=== PATIENT | male | born 1965 | race Caucasian/White ===

== ENCOUNTER → 2018-10-05 | Outpatient (CLI) | payer OTHER ==
[2018-10-05 19:17] LABS: U Amphetamine Screen Not Detected; U Barbituate Screen Not Detected; U Benzodiazapine Screen Not Detected; U Buprenorphine Screen Not Detected; U Cannabinoids Screen Not Detected; U Cocaine Screen Not Detected; U Methadone Screen Not Detected; U Methamphetamine Screen Not Detected; U Opiates Screen Not Detected; U Oxycodone Screen Not Detected; U Phencyclidine Screen Not Detected; U Propoxyphene Screen Not Detected
== END ==
LOC: LAB 15:17 → LAB SHORT 15:17
PROVIDERS: Nurse Practitioner Family
DX: G89.29 Other chronic pain (principal); Z79.891 Long term (current) use of opiate analgesic

== ENCOUNTER 2018-12-25 09:47 | Day surgery (SDC) | payer OTHER ==
[~2018-12-25] VITALS: Ht 175.3 cm; Wt 95.8 kg
[~2018-12-25 09:47] MED LIST: A THRU Z SELEC1 EAC5 PO; ALBU90OI INH; BUDE6HFA INH; CINNAMON BARK1 GM PO; GABA300 PO; Milk Thistle150 MG PO; Nicoderm Cq1 EAC1 TOP; Norco 10-325 T1 EACH PO; OXYC10TA19 PO; PREG50 PO; SIMV40 PO; TRAM50 PO
== END 2018-12-25 11:59 | disposition home or self-care (01) ==
LOC: ORSCSDS 09:47
PROVIDERS: Orthopaedic Surgery
PROC: 01N50ZZ Release Median Nerve, Open Approach (ICD-10-PCS; principal; 2018-12-25 11:55)
DX: G56.02 Carpal tunnel syndrome, left upper limb (principal); Z87.891 Personal history of nicotine dependence; E66.9 Obesity, unspecified; Z68.31 Body mass index [BMI] 31.0-31.9, adult; Z79.899 Other long term (current) drug therapy
CPT/HCPCS: J0690; J2250; J2405; J3010; J7120

== ENCOUNTER → 2019-04-10 | Outpatient (CLI) | payer OTHER ==
[~2019-04-10] MED LIST changes: +CYAN500 PO; +DHEA PO; +Depo-Testos200 MG/ML IM; +METAMUCIL660 GM; +Norco 5-325 Ta1 EACH PO; +PROBIOTIC1 EAC1 PO; +Pregnenolone Po25 GM; +Robaxin-750750 MG PO; +TRAZ50 PO; +Vitamin D400 UNI2 PO
[2019-04-11 14:20] LABS: Stool Occult Bld Immuno 1 Positive (NEGATIVE)
== END | disposition home or self-care (01) ==
LOC: LAB EV 14:45
PROVIDERS: Physician Assistant
DX: K52.9 Noninfective gastroenteritis and colitis, unspecified (principal)
CPT/HCPCS: 82274; 87493

== ENCOUNTER 2019-04-12 14:29 | Emergency (ER) | payer OTHER ==
[~2019-04-12] VITALS: Ht 152.4 cm; Wt 104.3 kg
[~2019-04-12 14:29] MED LIST changes: -CYAN500 PO; -DHEA PO; -Depo-Testos200 MG/ML IM; -METAMUCIL660 GM; -Norco 5-325 Ta1 EACH PO; -PROBIOTIC1 EAC1 PO; -Pregnenolone Po25 GM; -Robaxin-750750 MG PO; -TRAZ50 PO; -Vitamin D400 UNI2 PO
[2019-04-12] MEDS ORDERED: Depo-Testos200 MG/ML IM (14:51)
[2019-04-12] MEDS ORDERED: Pregnenolone Po25 GM (14:52)
[2019-04-12] MEDS ORDERED: TRAZ50 PO (14:53)
[2019-04-12] MEDS ORDERED: PROBIOTIC1 EAC1 PO (14:53)
[2019-04-12] MEDS ORDERED: Vitamin D400 UNI2 PO (14:54)
[2019-04-12] MEDS ORDERED: CYAN500 PO (14:55)
[2019-04-12] MEDS ORDERED: DHEA PO (14:55)
[2019-04-12] MEDS ORDERED: METAMUCIL660 GM (14:56)
[2019-04-12] MEDS ORDERED: Robaxin-750750 MG PO (16:31)
[2019-04-12] MEDS ORDERED: Norco 5-325 Ta1 EACH PO (16:31)
== END 2019-04-12 16:37 | disposition home or self-care (01) ==
LOC: ER 14:29
DX: M54.12 Radiculopathy, cervical region (principal); Z91.013 Allergy to seafood; Z79.899 Other long term (current) drug therapy; E78.5 Hyperlipidemia, unspecified; Z87.891 Personal history of nicotine dependence
CPT/HCPCS: 96372; 99283-25; J1170; J1885

== ENCOUNTER 2019-04-16 15:38 | Emergency (ER) | payer OTHER ==
[~2019-04-16] VITALS: Ht 172.7 cm; Wt 104.3 kg
[~2019-04-16 15:38] MED LIST changes: +CYAN500 PO; +DHEA PO; +Depo-Testos200 MG/ML IM; +METAMUCIL660 GM; +Norco 5-325 Ta1 EACH PO; +PROBIOTIC1 EAC1 PO; +Pregnenolone Po25 GM; +Robaxin-750750 MG PO; +TRAZ50 PO; +Vitamin D400 UNI2 PO
[2019-04-16] MEDS ORDERED: Norco 5-325 Ta1 EACH PO (16:32)
[2019-04-16] MEDS ORDERED: Robaxin-750750 MG PO (16:32)
== END 2019-04-16 16:36 | disposition home or self-care (01) ==
LOC: ER 15:38
DX: M54.2 Cervicalgia (principal); E78.5 Hyperlipidemia, unspecified; Z91.013 Allergy to seafood; Z79.899 Other long term (current) drug therapy; Z87.891 Personal history of nicotine dependence
CPT/HCPCS: 99281

== ENCOUNTER 2019-05-25 13:12 | Emergency (ER) | payer OTHER ==
[~2019-05-25] VITALS: Ht 172.7 cm; Wt 104.3 kg
[2019-05-25] MEDS ORDERED: Norco 10-325 T1 EACH PO (13:50)
[2019-06-01] MEDS ORDERED: Baclofen10 MG PO (13:26)
[2019-06-01] MEDS ORDERED: PRED10 PO (13:26)
[2019-06-15] MEDS ORDERED: Baclofen10 MG PO ×2 (12:17→12:34)
[2019-06-15] MEDS ORDERED: Percocet 7.5-31 EACH PO (12:34)
== END 2019-05-25 14:08 | disposition home or self-care (01) ==
LOC: ER 13:12
DX: M50.10 Cervical disc disorder with radiculopathy, unspecified cervical region (principal); M48.02 Spinal stenosis, cervical region; M25.78 Osteophyte, vertebrae; E78.5 Hyperlipidemia, unspecified; Z87.891 Personal history of nicotine dependence; Z91.018 Allergy to other foods; Z79.899 Other long term (current) drug therapy
CPT/HCPCS: 99283

== ENCOUNTER 2019-06-04 11:42 | Emergency (ER) | payer OTHER ==
[~2019-06-04] VITALS: Ht 172.7 cm; Wt 102.1 kg
[~2019-06-04 11:42] MED LIST changes: +Baclofen10 MG PO; +PRED10 PO
[2019-06-04] MEDS ORDERED: Percocet 7.5-31 EACH PO (14:04)
[2019-06-04] MEDS ORDERED: LIDO700A20 TOP (14:04)
[2019-06-15] MEDS ORDERED: Baclofen10 MG PO ×2 (12:17→12:34)
[2019-06-15] MEDS ORDERED: Percocet 7.5-31 EACH PO (12:34)
== END 2019-06-04 14:32 | disposition home or self-care (01) ==
LOC: ER 11:42
DX: G89.29 Other chronic pain (principal); M54.2 Cervicalgia; Z91.013 Allergy to seafood; Z79.899 Other long term (current) drug therapy; Z79.52 Long term (current) use of systemic steroids; Z87.891 Personal history of nicotine dependence
CPT/HCPCS: 99283

== ENCOUNTER 2019-06-09 13:28 | Emergency (ER) | payer OTHER ==
[~2019-06-09] VITALS: Ht 172.7 cm; Wt 102.1 kg
[~2019-06-09 13:28] MED LIST changes: +LIDO700A20 TOP; +Percocet 7.5-31 EACH PO
[2019-06-09] MEDS ORDERED: Percocet 7.5-31 EACH PO (13:47)
[2019-06-09] MEDS ORDERED: Baclofen10 MG PO (13:47)
[2019-06-15] MEDS ORDERED: Baclofen10 MG PO ×2 (12:17→12:34)
[2019-06-15] MEDS ORDERED: Percocet 7.5-31 EACH PO (12:34)
== END 2019-06-09 13:51 | disposition home or self-care (01) ==
LOC: ER 13:28
DX: M54.2 Cervicalgia (principal); Z76.0 Encounter for issue of repeat prescription; Z91.013 Allergy to seafood; Z79.899 Other long term (current) drug therapy; Z87.891 Personal history of nicotine dependence
CPT/HCPCS: 99282

== ENCOUNTER 2019-06-14 15:27 | Emergency (ER) | payer OTHER ==
[~2019-06-14] VITALS: Ht 172.7 cm; Wt 99.8 kg
[2019-06-15] MEDS ORDERED: Norco 10-325 T1 EACH PO (12:17)
[2019-06-15] MEDS ORDERED: Baclofen10 MG PO ×3 (12:17→12:34)
[2019-06-15] MEDS ORDERED: Percocet 7.5-31 EACH PO ×2 (12:34)
== END 2019-06-14 17:18 | disposition left against medical advice (07) ==
LOC: ER 15:27
DX: Z53.21 Procedure and treatment not carried out due to patient leaving prior to being seen by health care provider (principal); Z76.0 Encounter for issue of repeat prescription
CPT/HCPCS: 99281

== ENCOUNTER 2019-06-15 11:30 | Emergency (ER) | payer OTHER ==
[~2019-06-15] VITALS: Ht 172.7 cm; Wt 102.1 kg
[2019-06-15] MEDS ORDERED: Norco 10-325 T1 EACH PO (12:17)
[2019-06-15] MEDS ORDERED: Baclofen10 MG PO ×3 (12:17→12:34)
[2019-06-15] MEDS ORDERED: Percocet 7.5-31 EACH PO ×2 (12:34)
== END 2019-06-15 13:16 | disposition home or self-care (01) ==
LOC: ER 11:30
DX: M50.30 Other cervical disc degeneration, unspecified cervical region (principal); M48.02 Spinal stenosis, cervical region; Z91.013 Allergy to seafood; Z79.899 Other long term (current) drug therapy; Z87.891 Personal history of nicotine dependence
CPT/HCPCS: 99281

== ENCOUNTER 2019-06-20 15:39 | Emergency (ER) | payer OTHER ==
[~2019-06-20] VITALS: Ht 172.7 cm; Wt 102.1 kg
[2019-06-20] MEDS ORDERED: Baclofen10 MG PO ×2 (16:11→16:13)
[2019-06-20] MEDS ORDERED: Percocet 7.5-31 EACH PO ×2 (16:11→16:13)
== END 2019-06-20 16:20 | disposition home or self-care (01) ==
LOC: ER 15:39
DX: M54.2 Cervicalgia (principal); G89.29 Other chronic pain; Z76.0 Encounter for issue of repeat prescription; Z91.013 Allergy to seafood; Z79.899 Other long term (current) drug therapy; Z87.891 Personal history of nicotine dependence
CPT/HCPCS: 99282

== ENCOUNTER 2019-06-26 13:54 | Emergency (ER) | payer OTHER ==
[~2019-06-26] VITALS: Ht 172.7 cm; Wt 102.1 kg
[2019-06-26] MEDS ORDERED: Percocet 7.5-31 EACH PO (15:49)
[2019-06-26] MEDS ORDERED: BACL10 PO (15:49)
== END 2019-06-26 16:00 | disposition home or self-care (01) ==
LOC: ER 13:54
DX: M54.2 Cervicalgia (principal); Z76.0 Encounter for issue of repeat prescription; Z91.013 Allergy to seafood; Z79.899 Other long term (current) drug therapy; G89.29 Other chronic pain; Z87.891 Personal history of nicotine dependence
CPT/HCPCS: 99281

== ENCOUNTER 2019-07-01 13:21 | Emergency (ER) | payer OTHER ==
[~2019-07-01] VITALS: Ht 172.7 cm; Wt 102.1 kg
[~2019-07-01 13:21] MED LIST changes: +BACL10 PO
[2019-07-01] MEDS ORDERED: Baclofen10 MG PO (13:32)
[2019-07-01] MEDS ORDERED: Percocet 7.5-31 EACH PO ×2 (13:32→13:33)
== END 2019-07-01 13:38 | disposition home or self-care (01) ==
LOC: ER 13:21
DX: M54.2 Cervicalgia (principal); G89.29 Other chronic pain; Z91.013 Allergy to seafood; Z79.899 Other long term (current) drug therapy; Z87.891 Personal history of nicotine dependence
CPT/HCPCS: 99281

== ENCOUNTER 2019-07-06 12:52 | Emergency (ER) | payer OTHER ==
[~2019-07-06] VITALS: Ht 172.7 cm; Wt 102.1 kg
[2019-07-06] MEDS ORDERED: CYCL10 PO (13:07)
[2019-07-06] MEDS ORDERED: Percocet 7.5-31 EACH PO (13:07)
== END 2019-07-06 13:40 | disposition home or self-care (01) ==
LOC: ER 12:52
DX: M50.30 Other cervical disc degeneration, unspecified cervical region (principal); Z76.0 Encounter for issue of repeat prescription; Z91.018 Allergy to other foods; Z79.899 Other long term (current) drug therapy; Z87.891 Personal history of nicotine dependence
CPT/HCPCS: 99281

== ENCOUNTER 2019-07-10 14:43 | Emergency (ER) | payer OTHER ==
[~2019-07-10] VITALS: Ht 172.7 cm; Wt 102.1 kg
[~2019-07-10 14:43] MED LIST changes: +CYCL10 PO
[2019-07-10] MEDS ORDERED: CYCL10 PO (15:32)
[2019-07-10] MEDS ORDERED: Percocet 5-3251 EACH PO (15:32)
== END 2019-07-10 15:45 | disposition home or self-care (01) ==
LOC: ER 14:43
DX: M50.30 Other cervical disc degeneration, unspecified cervical region (principal); Z76.0 Encounter for issue of repeat prescription; Z91.013 Allergy to seafood; Z79.899 Other long term (current) drug therapy; Z87.891 Personal history of nicotine dependence
CPT/HCPCS: 99281

== ENCOUNTER 2020-03-10 10:57 | Emergency (ER) | payer MEDICARE, OTHER ==
[~2020-03-10] VITALS: Ht 172.7 cm; Wt 102.1 kg
[~2020-03-10 10:57] MED LIST changes: +Percocet 5-3251 EACH PO
[2020-03-10] MEDS ORDERED: PERCOCET 10-321 EAC2 PO (11:41)
== END 2020-03-10 12:04 | disposition home or self-care (01) ==
LOC: ER 10:57
DX: M47.9 Spondylosis, unspecified (principal); Z76.0 Encounter for issue of repeat prescription; Z79.899 Other long term (current) drug therapy; Z91.013 Allergy to seafood; Z87.891 Personal history of nicotine dependence
CPT/HCPCS: 99281

== ENCOUNTER 2020-04-28 15:21 | Emergency (ER) | payer MEDICARE, OTHER ==
[~2020-04-28] VITALS: Ht 177.8 cm; Wt 90.7 kg
[~2020-04-28 15:21] MED LIST changes: +PERCOCET 10-321 EAC2 PO
== END 2020-04-28 19:11 | disposition home or self-care (01) ==
LOC: ER 15:21
DX: G89.29 Other chronic pain (principal); M25.562 Pain in left knee; Z91.013 Allergy to seafood; Z79.899 Other long term (current) drug therapy; Z87.891 Personal history of nicotine dependence
CPT/HCPCS: 99283

== ENCOUNTER 2022-06-11 21:37 | Emergency (ER) | payer MEDICARE, OTHER ==
[~2022-06-11] VITALS: Ht 172.7 cm; Wt 86.2 kg
[2022-06-11] MEDS ORDERED: AMOCLA875 PO (23:36)
[2022-06-11] MEDS ORDERED: TOPICAINE113 GM TOP (23:40)
== END 2022-06-11 23:45 | disposition home or self-care (01) ==
LOC: ER 21:37
DX: J34.0 Abscess, furuncle and carbuncle of nose (principal); Z91.013 Allergy to seafood; Z79.899 Other long term (current) drug therapy; Z87.891 Personal history of nicotine dependence
CPT/HCPCS: A9270

== ENCOUNTER 2022-11-10 21:25 | Emergency (ER) | payer MEDICARE, OTHER ==
[~2022-11-10] VITALS: Ht 172.7 cm; Wt 91.2 kg
[~2022-11-10 21:25] MED LIST changes: -MELO7.5 PO; -PROM25 PO
[2022-11-10 21:58] VITALS: BP 164/113
[2022-11-10] MEDS ORDERED: OXYC10TA19 PO (22:13)
[2022-11-10] MEDS ORDERED: MELO7.5 PO (22:14)
[2022-11-12] MEDS ORDERED: PROM25 PO (07:21)
== END 2022-11-10 22:09 | disposition home or self-care (01) ==
LOC: ER 21:25
DX: K52.9 Noninfective gastroenteritis and colitis, unspecified (principal); Z91.013 Allergy to seafood; Z79.899 Other long term (current) drug therapy
CPT/HCPCS: 99283

== ENCOUNTER → 2022-11-10 | Outpatient (CLI) | payer MEDICARE, OTHER ==
[~2022-11-10] MED LIST changes: +AMOCLA875 PO; +MELO7.5 PO; +PROM25 PO; +TOPICAINE113 GM TOP
[2022-11-10 16:39] LABS: BASOPHILS ABSOLUTE AUTO 0.02 K/mm3 (0.00-0.23); BASOPHILS PERCENT AUTO 0 % (0-2); EOSINOPHILS PERCENT AUTO 0 % (0-6); Hematocrit 48.2 % (37.0-53.0); IMMATURE GRAN ABSOLUTE AUTO 0.09 K/mm3 (0.00-0.10); IMMATURE GRAN PERCENT AUTO 1 % (0-1); LYMPHOCYTES ABSOLUTE AUTO 1.09 K/mm3 (0.84-5.20); LYMPHOCYTES PERCENT AUTO 6 % (21-46); MONOCYTES ABSOLUTE AUTO 1.03 K/mm3 (0.16-1.47); MONOCYTES PERCENT AUTO 6 % (4-13); Mean Corpuscular HGB 32.6 pg (26.0-34.0); Mean Corpuscular HGB Conc 35.3 g/dL (31.5-36.5); Mean Corpuscular Volume 93 fL (80-100); Mean Platelet Volume 8.6 fL (9.1-12.4); NEUTROPHILS ABSOLUTE AUTO 15.68 K/mm3 (1.96-9.15); NEUTROPHILS PERCENT AUTO 88 % (41-73); Platelet Count 390 K/mm3 (150-400); RDW Coefficient Variation 13.5 % (11.7-14.2); RDW Standard Deviation 46.4 fL (35.1-46.3); Red Blood Cell Count 5.21 M/mm3 (4.30-5.90); White Blood Cell Count 17.91 K/mm3 (4.00-11.30)
[2022-11-10 16:45] LABS: Calcium, Blood 10.2 mg/dL (8.5-10.1); Creatinine, Blood 1.04 mg/dL (0.60-1.20); Potassium, Blood 4.3 mmol/L (3.5-5.5)
== END | disposition home or self-care (01) ==
LOC: LAB SHORT 16:34 → LAB 16:34
PROVIDERS: Physician Assistant
DX: E86.0 Dehydration (principal)
CPT/HCPCS: 80048; 85025

== ENCOUNTER → 2024-07-02 | Outpatient (CLI) | payer MEDICARE, OTHER ==
[~2024-07-02] MED LIST changes: +MELO7.5 PO; +PROM25 PO
== END | disposition home or self-care (01) ==
LOC: LAB SHORT 13:00 → LAB 13:00
DX: J18.9 Pneumonia, unspecified organism (principal)
CPT/HCPCS: 87070; 87077; 87186; 87205

== ENCOUNTER 2024-07-19 17:22 | Emergency (ER) | payer MEDICARE, OTHER ==
[~2024-07-19] VITALS: Ht 172.7 cm; Wt 95.2 kg
[2024-07-19 18:15] VITALS: BP 174/93
[2024-07-19] MEDS ORDERED: PERCOCET 10-321 EA10 PO (21:41)
== END 2024-07-19 21:46 | disposition home or self-care (01) ==
LOC: ER 17:22
DX: Z76.0 Encounter for issue of repeat prescription (principal); Z79.899 Other long term (current) drug therapy; Z91.013 Allergy to seafood
CPT/HCPCS: 99281

== ENCOUNTER 2024-07-26 16:14 | Emergency (ER) | payer MEDICARE, OTHER ==
[~2024-07-26] VITALS: Ht 172.7 cm; Wt 95.2 kg
[~2024-07-26 16:14] MED LIST changes: +PERCOCET 10-321 EA10 PO
[2024-07-26 17:16] VITALS: BP 171/85
== END 2024-07-26 17:53 | disposition home or self-care (01) ==
LOC: ER 16:14
DX: G89.29 Other chronic pain (principal); Z79.899 Other long term (current) drug therapy; Z91.013 Allergy to seafood
CPT/HCPCS: 99281

== ENCOUNTER 2024-07-27 15:09 | Emergency (ER) | payer MEDICARE, OTHER ==
[~2024-07-27] VITALS: Ht 177.8 cm; Wt 90.7 kg
[2024-07-27 15:34] VITALS: BP 142/92
== END 2024-07-27 15:41 | disposition home or self-care (01) ==
LOC: ER 15:09
DX: G89.29 Other chronic pain (principal); Z88.8 Allergy status to other drugs, medicaments and biological substances; Z79.899 Other long term (current) drug therapy
CPT/HCPCS: 99281

== ENCOUNTER 2024-07-28 17:15 | Emergency (ER) | payer MEDICARE, OTHER ==
[~2024-07-28] VITALS: Ht 180.3 cm; Wt 104.3 kg
[2024-07-28 17:38] VITALS: BP 165/93
== END 2024-07-28 17:43 | disposition home or self-care (01) ==
LOC: ER 17:15
DX: M54.2 Cervicalgia (principal); G89.29 Other chronic pain; Z76.0 Encounter for issue of repeat prescription; Z79.899 Other long term (current) drug therapy; Z91.013 Allergy to seafood
CPT/HCPCS: 99281

== ENCOUNTER 2024-09-12 15:00 | Inpatient (IN) | payer OTHER ==
[~2024-09-12] VITALS: Ht 172.7 cm; Wt 93.2 kg
[2024-09-12] MEDS ORDERED: Ondansetron HCl 2 MG / ML 2ML Vial IV ONE ×2 (15:40→19:25)
[2024-09-12] MEDS ORDERED: NS 1,000 ML IV SCH ×2 (15:40→17:25)
[2024-09-12] MEDS ORDERED: Acetaminophen 500 MG Tab PO ONE (15:40)
[2024-09-12] MEDS ORDERED: Ibuprofen 600 MG Tab PO ONE (15:45)
[2024-09-12 16:21] LABS: BASOPHILS ABSOLUTE AUTO 0.01 K/mm3 (0.00-0.23); BASOPHILS PERCENT AUTO 0 % (0-2); EOSINOPHILS PERCENT AUTO 0 % (0-6); Hematocrit 45.1 % (37.0-53.0); Hemoglobin 15.4 g/dL (13.5-17.5); IMMATURE GRAN ABSOLUTE AUTO 0.07 K/mm3 (0.00-0.10); IMMATURE GRAN PERCENT AUTO 1 % (0-1); LYMPHOCYTES ABSOLUTE AUTO 0.31 K/mm3 (0.84-5.20); LYMPHOCYTES PERCENT AUTO 4 % (21-46); MONOCYTES ABSOLUTE AUTO 0.35 K/mm3 (0.16-1.47); MONOCYTES PERCENT AUTO 4 % (4-13); Mean Corpuscular HGB 32.2 pg (26.0-34.0); Mean Corpuscular HGB Conc 34.1 g/dL (31.5-36.5); Mean Corpuscular Volume 94 fL (80-100); Mean Platelet Volume 8.7 fL (9.1-12.4); NEUTROPHILS ABSOLUTE AUTO 7.18 K/mm3 (1.96-9.15); NEUTROPHILS PERCENT AUTO 91 % (41-73); Platelet Count 206 K/mm3 (150-400); RDW Coefficient Variation 14.2 % (11.7-14.2); RDW Standard Deviation 49.5 fL (35.1-46.3); Red Blood Cell Count 4.79 M/mm3 (4.30-5.90); White Blood Cell Count 7.92 K/mm3 (4.00-11.30)
[2024-09-12] MEDS ORDERED: Doxycycline Hyclate 100 MG in Dextrose 5% 250 ML IV ONE (16:30)
[2024-09-12] MEDS ORDERED: CefTRIAXone Sodium 1,000 MG in NS 100 ML IV ONE (16:30)
[2024-09-12 16:33] LABS: Base Excess Venous -0.2 mmol/L; Bicarbonate Venous 25.2 mmol/L (24.0-30.0)
[2024-09-12 16:34] LABS: Bun/Creatinine Ratio 25.6 (12.0-20.0); Calcium, Blood 9.2 mg/dL (8.5-10.1); Creatinine, Blood 0.86 mg/dL (0.60-1.20); Potassium, Blood 4.2 mmol/L (3.5-5.5)
[2024-09-12] MEDS ORDERED: OxyCODONE 10/Acetamin 325 TABLET PO ONE (19:25)
[2024-09-12] MEDS ORDERED: MethylPREDNISolone Sod Succ 125 MG Vial IV ONE (20:15)
[2024-09-12] MEDS ORDERED: Ipratropium Bromide INH 0.02% 0.5 mg/2.5ML Vial INH ONE (20:15)
[2024-09-12] MEDS ORDERED: Metoclopramide HCl 5MG / ML 2ML Vial IV ONE (20:25)
[2024-09-12] MEDS ORDERED: DiphenhydrAMINE HCl 50 MG/ML 1ML Vial IV ONE (20:25)
[2024-09-12] MEDS ORDERED: Ondansetron HCl 2 MG / ML 2ML Vial IV PRN (20:50)
[2024-09-12] MEDS ORDERED: Ipratropium/Albuterol SulF 2.5-0.5MG/3 ML Amp INH SCH (20:50)
[2024-09-12] MEDS ORDERED: dilTIAZem HCL 30 MG TAB PO PRN (20:50)
[2024-09-12] MEDS ORDERED: Albuterol 2.5 MG/3 ML VIAL INH PRN (20:50)
[2024-09-12] MEDS ORDERED: Metoclopramide HCl 5MG / ML 2ML Vial IV PRN (20:55)
[2024-09-12] MEDS ORDERED: Lactated Ringer's 1,000 ML IV SCH (20:55)
[2024-09-12] MEDS ORDERED: FentaNYL Citrate 50 MCG/ML 2 ML Injection IV PRN (20:55)
[2024-09-12] MEDS ORDERED: Diltiazem HCl 5 MG / ML 5ML Vial IV ONE (20:55)
[2024-09-12] MEDS ORDERED: Lactobacil 2-S.Thermo-Bifido 1 1 Cap PO SCH (21:00)
[2024-09-12] MEDS ORDERED: Azithromycin 500 MG in NS 250 ML IV SCH (21:37)
[2024-09-12] MEDS ORDERED: ADDERALL 10 MG10 MG PO (23:22)
[2024-09-12] MEDS ORDERED: TRAM50 PO (23:23)
[2024-09-12 23:33] VITALS: BP 151/88
[2024-09-12 23:34] LABS: Base Excess Venous 1.2 mmol/L; Bicarbonate Venous 24.8 mmol/L (24.0-30.0); PCO2 Venous 38.3 mmHg (38-42); pH Blood Venous 7.43 (7.34-7.37)
[2024-09-13] MEDS ORDERED: OxyCODONE 5 mg/Acetamin 325 mg TABLET PO PRN (01:05)
[2024-09-13] MEDS ORDERED: FentaNYL Citrate 50 MCG/ML 2 ML Injection IV PRN (02:00)
[2024-09-13 03:54] VITALS: BP 143/81
[2024-09-13 04:57] LABS: BASOPHILS ABSOLUTE AUTO 0.01 K/mm3 (0.00-0.23); BASOPHILS PERCENT AUTO 0 % (0-2); EOSINOPHILS PERCENT AUTO 0 % (0-6); Hematocrit 40.8 % (37.0-53.0); Hemoglobin 13.4 g/dL (13.5-17.5); IMMATURE GRAN ABSOLUTE AUTO 0.03 K/mm3 (0.00-0.10); IMMATURE GRAN PERCENT AUTO 1 % (0-1); LYMPHOCYTES ABSOLUTE AUTO 0.23 K/mm3 (0.84-5.20); LYMPHOCYTES PERCENT AUTO 5 % (21-46); MONOCYTES ABSOLUTE AUTO 0.13 K/mm3 (0.16-1.47); MONOCYTES PERCENT AUTO 3 % (4-13); Mean Corpuscular HGB 32.1 pg (26.0-34.0); Mean Corpuscular HGB Conc 32.8 g/dL (31.5-36.5); Mean Corpuscular Volume 98 fL (80-100); Mean Platelet Volume 8.9 fL (9.1-12.4); NEUTROPHILS ABSOLUTE AUTO 4.58 K/mm3 (1.96-9.15); NEUTROPHILS PERCENT AUTO 92 % (41-73); Platelet Count 170 K/mm3 (150-400); RDW Coefficient Variation 14.6 % (11.7-14.2); RDW Standard Deviation 52.8 fL (35.1-46.3); Red Blood Cell Count 4.17 M/mm3 (4.30-5.90); White Blood Cell Count 4.98 K/mm3 (4.00-11.30)
[2024-09-13 05:11] LABS: International Normalized Ratio 0.98; Prothrombin Time Results 10.5 Sec (9.7-11.5)
[2024-09-13 05:34] LABS: Albumin, Blood 2.5 g/dL (3.4-5.0); Albumin/Globulin Ratio 0.8 (0.8-1.8); Bilirubin, Total 0.2 mg/dL (0.1-1.0); Bun/Creatinine Ratio 24.2 (12.0-20.0); Creatinine, Blood 0.66 mg/dL (0.60-1.20); Globulin, Blood 3.3 g/dL (2.2-4.0); Magnesium, Blood 1.9 mg/dL (1.6-2.4); Potassium, Blood 4.2 mmol/L (3.5-5.5); Total Protein, Blood 5.8 g/dL (6.4-8.2)
[2024-09-13] MEDS ORDERED: MethylPREDNISolone Sod Succ 125 MG Vial IV SCH (06:00)
--- NOTE | 2024-09-13 06:38 | NUR ---
SHIFT SUMMARY PT ARRIVED FROM ER AT APPROX 2318. PT ALERT AND ORIENTED X4, ABLE TO TRANSFER SELF FROM [facility] TO HOSPITAL BED WITHOUT INCIDENCE. HE IS ON 2L NC, RA AT BASELINE. SATS ABOVE 90%. PT HAS CHRONIC BACK PAIN X30 YEARS. REPORTS PAIN AT 6-7/10, TREATED PER EMAR. VSS, SINUS RHYTHM. PT DENIES CHEST PAIN/PRESSURE. HE ENDORSES DIARRHEA X3 DAYS. HE IS ABLE TO AMBULATE INDEPENDENTLY TO THE BEDSIDE COMMODE AND USES CALL LIGHT APPROPRIATELY. PT IS ON CONTACT PRECAUTIONS FOR FLU.
[2024-09-13 07:57] VITALS: BP 150/88
[2024-09-13] MEDS ORDERED: Enoxaparin 40 MG/0.4 ML SYR SC SCH (09:00)
[2024-09-13] MEDS ORDERED: Nicotine 21 MG PATCH TOP SCH (09:50)
[2024-09-13 11:35] VITALS: BP 163/80
[2024-09-13 12:12] VITALS: BP 141/75
[2024-09-13 17:33] VITALS: BP 134/66
--- NOTE | 2024-09-13 17:58 | NUR ---
Pt is alert, oriented and conversant. STates he has been watching his heart rhythm on bedside Velez monitor and was afraid something was wrong when he saw the artifact. Explained that he is not in afib right now, but normal sinus rhythm. Pt education given at his request about nature of atrial fibrillation, effects and risks. Pt expressed appreciation for the education. Pt was assisted with dinner after vital signs taken and medication administration. Floor mopped as it was sticky. Pt states it was sticky all day because people didn't know how to clean it up after the spill of soda this morning.
[2024-09-13] MEDS ORDERED: CefTRIAXone Sodium 1,000 MG in NS 100 ML IV SCH (18:00)
[2024-09-13 20:00] VITALS: BP 132/74
[2024-09-14 00:30] VITALS: BP 152/76
[2024-09-14 04:21] VITALS: BP 170/90
--- NOTE | 2024-09-14 04:23 | NUR ---
THIS RN TO BEDSIDE. PT REPORTING 8/10 PAIN AND SEVERE NAUSEA. TREATING PER EMAR. PT NOTED TO BE HYPERTENSIVE WHILE VOMITING INTO EMESIS BAG. BP 170/90
--- NOTE | 2024-09-14 04:25 | NUR ---
SHIFT SUMMARY PT A/OX4, VERBALIZES NEEDS, USES CALL LIGHT APPROPRIATELY. HE ENDORSES PAIN T/O SHIFT 4-02/10. PT ALSO REPORTS INTERMITTENT NAUSEA. TREATING BOTH PER EMAR. PT ON RA AT TIMES AND 2L NC AT TIMES, MAINTAINING SATS ABOVE 90%. PT AMBULATING INDEPENDENTLY IN ROOM. USING BATHROOM WITHOUT ISSUE. NO ACUTE EVENTS THIS SHIFT.
[2024-09-14] MEDS ORDERED: Pantoprazole Sodium 40 MG Injection IV ONE (05:05)
[2024-09-14] MEDS ORDERED: HYDROmorphone HCl/Pf 1MG SYR IV ONE (05:05)
[2024-09-14 05:24] LABS: BASOPHILS ABSOLUTE AUTO 0.01 K/mm3 (0.00-0.23); BASOPHILS PERCENT AUTO 0 % (0-2); EOSINOPHILS PERCENT AUTO 0 % (0-6); Hematocrit 41.2 % (37.0-53.0); Hemoglobin 14.1 g/dL (13.5-17.5); IMMATURE GRAN ABSOLUTE AUTO 0.02 K/mm3 (0.00-0.10); IMMATURE GRAN PERCENT AUTO 0 % (0-1); LYMPHOCYTES ABSOLUTE AUTO 0.29 K/mm3 (0.84-5.20); LYMPHOCYTES PERCENT AUTO 3 % (21-46); MONOCYTES ABSOLUTE AUTO 0.33 K/mm3 (0.16-1.47); MONOCYTES PERCENT AUTO 4 % (4-13); Mean Corpuscular HGB 32.1 pg (26.0-34.0); Mean Corpuscular HGB Conc 34.2 g/dL (31.5-36.5); Mean Corpuscular Volume 94 fL (80-100); Mean Platelet Volume 8.9 fL (9.1-12.4); NEUTROPHILS ABSOLUTE AUTO 7.77 K/mm3 (1.96-9.15); NEUTROPHILS PERCENT AUTO 92 % (41-73); Platelet Count 177 K/mm3 (150-400); RDW Coefficient Variation 14.4 % (11.7-14.2); RDW Standard Deviation 50.4 fL (35.1-46.3); Red Blood Cell Count 4.39 M/mm3 (4.30-5.90); White Blood Cell Count 8.42 K/mm3 (4.00-11.30)
--- NOTE | 2024-09-14 05:36 | NUR ---
PT REPORTING SEVERE 9/10 LLQ ABDOMINAL PAIN. NOTIFIED AND TO BEDSIDE. PT HAD BM JUST BEFORE DR ARRIVED. STOOL WAS DARK, FORMED, WITH SMALL AMOUNTS OF DIARRHEA. MD WITNESSED, SUSPECTS POSSIBLE GI BLEED. SEE NEW ORDERS FOR LABS AND MEDS. MD ALSO ORDERED OXYCODONE AND PHENERGAN TO BE HELD PENDING DIANGNOSTICS. PT INSTRUCTED TO USE HAT FOR NEXT BM. PT NPO AT THIS TIME.
[2024-09-14 05:46] LABS: Albumin, Blood 2.7 g/dL (3.4-5.0); Anion Gap 10 mmol/L (3-11); Blood Urea Nitrogen 16 mg/dL (8-24); Bun/Creatinine Ratio 29.3 (12.0-20.0); CO2, Blood 24 mmol/L (21-32); Calcium, Blood 8.4 mg/dL (8.5-10.1); Chloride, Blood 107 mmol/L (98-108); Creatinine, Blood 0.55 mg/dL (0.60-1.20); Glomerular Filtration Rate 113 (60-); Glucose, Blood 167 mg/dL (70-99); Magnesium, Blood 2.1 mg/dL (1.6-2.4); Phosphorus, Blood 1.9 mg/dL (2.5-4.9); Potassium, Blood 3.8 mmol/L (3.5-5.5); Sodium, Blood 137 mmol/L (136-145)
--- NOTE | 2024-09-14 06:35 | NUR ---
PT RESTING COMFORTABLY IN RECLINER AT THIS TIME ON RA, SATS ABOVE 93%. VSS, CALL LIGHT IN REACH
[2024-09-14 07:39] VITALS: BP 146/73
[2024-09-14] MEDS ORDERED: Meclizine HCl 25 MG Tab PO ONE (10:00)
[2024-09-14] MEDS ORDERED: Metoprolol Tartrate 1 MG/ML 5 ML VIAL IV ONE ×3 (10:00→13:55)
[2024-09-14] MEDS ORDERED: Ipratropium/Albuterol SulF 2.5-0.5MG/3 ML Amp INH SCH (10:00)
[2024-09-14] MEDS ORDERED: Morphine Sulfate 4 MG/1 ML Injection IV ONE (10:00)
[2024-09-14] MEDS ORDERED: Acetaminophen 500 MG Tab PO SCH (10:00)
--- NOTE | 2024-09-14 10:13 | NUR ---
0449 [email or web address] NOTIFIED THIS RN THAT PT HAS CONVERTED TO AFIB WITH RATES RANGING 120-140'S. ROUNDING ON THE FLOOR AND NOTIFIED OF CONVERSION. PT HR LATER TO 180'S WHILE AMBULATING TO TOILET, PT REPORTED SOB. PT ABLE TO AMBULATE TO CHAIR, TOLERATED FAIR. PT INSTRUCTED TO CALL FOR ASSISTANCE AND NOT TO GET UP ON HIS OWN AT THIS TIME. LOPRESSOR IV GIVEN PER ORDER. HR DOWN TO 100-110'S.
[2024-09-14 11:58] VITALS: BP 138/84
[2024-09-14 12:40] LABS: Stool Occult Blood Guaiac 1 Pos (Neg)
[2024-09-14 12:47] LABS: C DIFFICILE DNA POSITIVE (Negative)
[2024-09-14 13:54] LABS: Hematocrit 43.5 % (37.0-53.0); Hemoglobin 14.5 g/dL (13.5-17.5)
[2024-09-14] MEDS ORDERED: dilTIAZem HCL 30 MG TAB PO SCH (15:00)
[2024-09-14] MEDS ORDERED: HYDROcodone 10-APAP 325 TAB PO PRN (15:55)
[2024-09-14] MEDS ORDERED: Potassium Phosphate Dibasic 10 MM in Dextrose 5% 250 ML IV STA (15:58)
[2024-09-14] MEDS ORDERED: dilTIAZem HCL 30 MG TAB PO ONE (16:30)
[2024-09-14 16:31] VITALS: BP 131/103
[2024-09-14] MEDS ORDERED: NS 1,000 ML IV SCH (16:45)
[2024-09-14] MEDS ORDERED: Furosemide 10 MG / ML 2ML Vial IV ONE (16:50)
[2024-09-14] MEDS ORDERED: Sodium Phosphate 10 MM in Dextrose 5% 250 ML IV ONE (18:00)
--- NOTE | 2024-09-14 19:27 | NUR ---
SHIFT SUMMARY PATIENT AOX4 ABLE TO MAKE NEEDS KNOWN. HE COMPLAINS THAT THE OXYGEN MAKES HM NAUSEAUS AND REFUSES TO WEAR IT AT TIMES BUT ALSO REFUSES NAUSEA MEDICATION. HE HAD SOME RUNS OF VTACH THIS MORNING DR KAVON GARCIA. PATIENT WENT INTO AFIB RVR AT 0850 DR KAVON GARCIA. THE PATENT WAS TREATED WITH IV LOPRESSOR MULTIPLE TIMES AND HEN STARTED ON PO CARDIZEM. HIS LUNGS WERE WHEEZING AND HE WAS SHORT OF BREATH ON ROOM AIR SO HE WAS STARTED ON 4L SIMPLE MASK BECAUSE HE COULD NOT TOLERATE THE SMELL OF THE NASAL CANNULA. hEWAS ALSO STARTED ON THE BIPAP DUE TO THE SOB ON THE SIMPLE MASK. PATIENT COMPLAINS OF THE BIPAP SO HE ALTERNATES BETWEEN THE TWO. HE IS ABLE TO AMBULATE TO THE BATHROOM INDEPENDENTLY.
[2024-09-14 19:31] VITALS: BP 111/80
--- NOTE | 2024-09-14 20:59 | NUR ---
ASSUMED CARE OF THIS PT AT 1900. PT IS A+O X4, ABLE TO MAKE NEEDS KNOWN. SITTING UP IN RECLINER AT START OF SHIFT, HAS NOW TRANSFERED TO THE BED TO TRY TO REST. IV FLUIDS RUNNING TKO. PT ON 4 LITERS OXYGEN VIA MASK SATTING ABOVE 93%. EXPRESSES CHRONIC BACK PAIN MEDICATED PER EMAR. CALL LIGHT IN REACH. FRESH ICE WATER PROVIDED, DENIES ANY OTHER NEEDS AT THIS TIME. WILL CONTINUE W/ PLAN OF CARE.
[2024-09-14] MEDS ORDERED: MethylPREDNISolone Sod Succ 125 MG Vial IV SCH (21:00)
[2024-09-15 00:09] VITALS: BP 126/75
[2024-09-15 03:16] VITALS: BP 126/81
[2024-09-15 04:36] LABS: BASOPHILS ABSOLUTE AUTO 0.01 K/mm3 (0.00-0.23); BASOPHILS PERCENT AUTO 0 % (0-2); EOSINOPHILS PERCENT AUTO 0 % (0-6); Hematocrit 42.9 % (37.0-53.0); Hemoglobin 14.9 g/dL (13.5-17.5); Mean Corpuscular HGB 32.3 pg (26.0-34.0); Mean Corpuscular HGB Conc 34.7 g/dL (31.5-36.5); Mean Corpuscular Volume 93 fL (80-100); Mean Platelet Volume 9.5 fL (9.1-12.4); Platelet Count 193 K/mm3 (150-400); RDW Coefficient Variation 14.4 % (11.7-14.2); RDW Standard Deviation 49.8 fL (35.1-46.3); Red Blood Cell Count 4.61 M/mm3 (4.30-5.90); White Blood Cell Count 9.34 K/mm3 (4.00-11.30)
[2024-09-15 04:45] LABS: IMMATURE GRAN ABSOLUTE AUTO 0.05 K/mm3 (0.00-0.10); IMMATURE GRAN PERCENT AUTO 1 % (0-1); LYMPHOCYTES ABSOLUTE AUTO 0.57 K/mm3 (0.84-5.20); LYMPHOCYTES PERCENT AUTO 6 % (21-46); MONOCYTES ABSOLUTE AUTO 0.22 K/mm3 (0.16-1.47); MONOCYTES PERCENT AUTO 2 % (4-13); NEUTROPHILS ABSOLUTE AUTO 8.49 K/mm3 (1.96-9.15); NEUTROPHILS PERCENT AUTO 91 % (41-73)
[2024-09-15 05:02] LABS: Albumin, Blood 2.3 g/dL (3.4-5.0); Albumin/Globulin Ratio 0.6 (0.8-1.8); Bilirubin, Total 0.5 mg/dL (0.1-1.0); Bun/Creatinine Ratio 34.4 (12.0-20.0); Calcium, Blood 8.3 mg/dL (8.5-10.1); Creatinine, Blood 0.58 mg/dL (0.60-1.20); Globulin, Blood 3.6 g/dL (2.2-4.0); Phosphorus, Blood 3.6 mg/dL (2.5-4.9); Potassium, Blood 3.8 mmol/L (3.5-5.5); Total Protein, Blood 5.9 g/dL (6.4-8.2)
[2024-09-15 05:20] LABS: BAND PERCENT MAN 1 % (0-8); BASOPHILS PERCENT MAN 0 % (0-2); EOSINOPHILS PERCENT MAN 0 % (0-6); LYMPHOCYTES ABSOLUTE MAN 0.28 K/mm3 (0.84-5.20); LYMPHOCYTES PERCENT MAN 3 % (21-46); METAMYELOCYTE ABSOLUTE MAN 0.09 K/mm3 (0.00-0.00); METAMYELOCYTE PERCENT MAN 1 % (0-0); MONOCYTES ABSOLUTE MAN 0.37 K/mm3 (0.16-1.47); MONOCYTES PERCENT MAN 4 % (4-13); NEUTROPHILS ABSOLUTE MAN 8.59 K/mm3 (1.96-9.15); SEG NEUTROPHILS PERCENT MAN 91 % (41-73); TOTAL CELLS COUNTED 100
[2024-09-15] MEDS ORDERED: Pantoprazole Sodium 40 MG Tab PO SCH (06:00)
--- NOTE | 2024-09-15 06:22 | NUR ---
SHIFT SUMMARY PT IS A+O X4, ABLE TO MAKE NEEDS KNOWN, USES CALL LIGHT. HE WAS ABLE TO REST IN THE BED W/ HOB ELAVATED. HE REMAINS ON SIMPLE FACE MASK BETWEEN 8-10 LITERS, SOB W/ ACTIVITY. PT COUGHING UP SPUTUM AT TIMES SPUTUM SAMPLE STILL NEEDS COLLECTED. PT WOULD NOT WEAR THE BIPAP LAST NIGHT FOR ANY AMOUNT OF TIME. PT CONVERTED TO NSR FOR A SHORT PERIOD OF TIME THIS AM AND WENT RIGHT BACK TO AFIB. PT DENIES CHEST PAIN OR PRESSURE. VOIDING IN URINAL WITHOUT ISSUES. IV FLUIDS RUNNING KVO. MEDICATED PER EMAR Q4 FOR CHRONIC BACK PAIN. BED IN LOWEST POSTION, CALL LIGHT IN REACH. WILL CONTINUE WITH PLAN OF CARE AND REPORT TO ONCOMING RN.
--- NOTE | 2024-09-15 06:55 | NUR ---
NURSE NOTE PT TITRATED BACK DOWN TO 4 LITERS SIMPLE FACE MASK. CALL LIGHT IN REACH. PT RESTING IN BED.
[2024-09-15 08:15] VITALS: BP 132/83
[2024-09-15] MEDS ORDERED: Potassium Chloride 20 MEQ/15 ML UDC PO ONE (09:00)
[2024-09-15] MEDS ORDERED: Metoprolol Tartrate 1 MG/ML 5 ML VIAL IV ONE (11:00)
[2024-09-15] MEDS ORDERED: dilTIAZem HCL 30 MG TAB PO ONE (11:00)
[2024-09-15] MEDS ORDERED: dilTIAZem HCL 60 MG TAB PO SCH (11:30)
[2024-09-15 12:14] VITALS: BP 129/90
[2024-09-15] MEDS ORDERED: Furosemide 10 MG/ML 4ML Vial IV ONE (13:00)
[2024-09-15 16:14] VITALS: BP 149/74
--- NOTE | 2024-09-15 18:22 | NUR ---
SHIFT SUMMARY PT IS A+O X4, ABLE TO MAKE NEEDS KNOWN, USES CALL LIGHT. HE WAS ABLE TO REST IN THE BED W/ HOB ELAVATED. HE REMAINS ON SIMPLE FACE MASK BETWEEN 6-8 LITERS, SOB W/ ACTIVITY. PT WOULD NOT WEAR THE BIPAP TODAY FOR ANY AMOUNT OF TIME. PT DENIES CHEST PAIN OR PRESSURE. VOIDING IN URINAL WITHOUT ISSUES. IV FLUIDS RUNNING KVO. MEDICATED PER EMAR Q4 FOR CHRONIC BACK PAIN. BED IN LOWEST POSTION, CALL LIGHT IN REACH. WILL CONTINUE WITH PLAN OF CARE AND REPORT TO ONCOMING RN.
[2024-09-15 19:30] VITALS: BP 117/77
--- NOTE | 2024-09-15 21:05 | NUR ---
ASSUMED CARE OF THIS PATIENT AT 1900 PT IS A+O X4, ABLE TO MAKE NEEDS KNOWN. WEARING 4 LITERS SIMPLE FACE MASK AT THIS TIME SATTING 90% AND ABOVE. PT WILL DESAT IF HE REMOVES MASK OR HAS A COUGHING FIT. PT REQUESTED TO SHAVE HIS FACE THIS EVENING THIS RN ASSISTED HIS TO DUE SO. UPDATED HIS YAYO OVER THE PHONE ON PT STATUS WELL. PT IS NOW RESTING IN BED W/ HOB ELAVATED 45%. BED IN LOWEST POSTION, CALL LIGHT IN REACH.
[2024-09-16 00:37] VITALS: BP 125/83
[2024-09-16 03:59] VITALS: BP 124/73
[2024-09-16 04:41] LABS: Hematocrit 43.2 % (37.0-53.0); Hemoglobin 14.9 g/dL (13.5-17.5); Mean Corpuscular HGB 32.1 pg (26.0-34.0); Mean Corpuscular HGB Conc 34.5 g/dL (31.5-36.5); Mean Corpuscular Volume 93 fL (80-100); Mean Platelet Volume 9.5 fL (9.1-12.4); Platelet Count 221 K/mm3 (150-400); RDW Coefficient Variation 14.5 % (11.7-14.2); RDW Standard Deviation 49.9 fL (35.1-46.3); Red Blood Cell Count 4.64 M/mm3 (4.30-5.90); White Blood Cell Count 8.46 K/mm3 (4.00-11.30)
[2024-09-16 05:01] LABS: BASOPHILS PERCENT MAN 0 % (0-2); EOSINOPHILS PERCENT MAN 0 % (0-6); LYMPHOCYTES PERCENT MAN 6 % (21-46); MONOCYTES ABSOLUTE MAN 0.42 K/mm3 (0.16-1.47); MONOCYTES PERCENT MAN 5 % (4-13); NEUTROPHILS ABSOLUTE MAN 7.52 K/mm3 (1.96-9.15); SEG NEUTROPHILS PERCENT MAN 89 % (41-73); TOTAL CELLS COUNTED 100
[2024-09-16 05:05] LABS: Albumin, Blood 2.3 g/dL (3.4-5.0); Anion Gap 8 mmol/L (3-11); Blood Urea Nitrogen 30 mg/dL (8-24); Bun/Creatinine Ratio 48.3 (12.0-20.0); CO2, Blood 27 mmol/L (21-32); Calcium, Blood 8.5 mg/dL (8.5-10.1); Chloride, Blood 106 mmol/L (98-108); Creatinine, Blood 0.62 mg/dL (0.60-1.20); Glomerular Filtration Rate 109 (60-); Glucose, Blood 188 mg/dL (70-99); Phosphorus, Blood 3.6 mg/dL (2.5-4.9); Sodium, Blood 137 mmol/L (136-145)
--- NOTE | 2024-09-16 06:11 | NUR ---
SHIFT SUMMARY PT A+O X4 ABLE TO MAKE NEEDS KNOWN, REPOSTIONS SELF IN BED, IDEPT TRANSFER DOES NEED ASSISTANCE WITH LINES. USING URINAL IN BED, GOOD OUTPUT DURING THE NIGHT. 500 mls OF FLUID INTAKE OVER NIGHT. PT STILL NOT WANTING TO EAT AT THIS TIME. PARTIAL BED BATH PROVIDED, LOTION PROVIDED ON FEET AND LOWER LEGS PER PT REQUEST. IV FLUIDS INFUSING TKO INTO LFA IV. PT REMAINS ON 4 LITERS SIMPLE MASK, REFUSING CPAP, SATTING ABOVE 90% UNLESS COUGHING. PT IS ABLE TO COUGH UP SECRITIONS AND IS USING FLUTTER VALVE. PT FEET ELAVATED ONTO PILLOWS SOME BLE EDEMA NOTED THIS AM. CALL LIGHT IN REACH, WILL CONT WITH PLAN OF CARE AND REPORT TO ONCOMING RN
[2024-09-16 08:54] VITALS: BP 124/74
[2024-09-16] MEDS ORDERED: Potassium Phos/Sodium Phos 250 MG PACK PO ONE (09:00)
[2024-09-16] MEDS ORDERED: Enoxaparin 100 MG/ML 1ML SYR SC SCH (09:00)
[2024-09-16] MEDS ORDERED: Furosemide 40 MG Tab PO SCH (09:00)
[2024-09-16] MEDS ORDERED: Furosemide 20 MG Tab PO SCH (09:00)
[2024-09-16] MEDS ORDERED: Metoprolol Tartrate 25 MG Tab PO SCH (09:00)
[2024-09-16 12:39] VITALS: BP 121/75
[2024-09-16 17:26] VITALS: BP 155/96
--- NOTE | 2024-09-16 18:54 | NUR ---
End of shift note. Pt has been OOB to the bathroom this morning. Some noted SOB when moving around but Pt has been able to maintain on 4L mask. Pt is interested in using the CPAP tonight but would like the RT to spend some time with him talking about settings. RT is aware of request. was updated per phone. BM this morning. No blood noted. Pt is able to make needs known, call light is within reach.
[2024-09-16 19:45] VITALS: BP 145/70
--- NOTE | 2024-09-16 20:28 | NUR ---
ASSUMED CARE OF THIS PT AT 1915. PT IS A+O X4, ABLE TO MAKE NEEDS KNOWN. SITTING UP IN BED. HE IS WEARING 4 LITERS OF OXYGEN VIA SIMPLE MASK. SATTING 94% DURING MY ASSESSMENT. IF PT REMOVES MASK HE WILL DESATURATE. PT HAS PRODUCTIVE COUGH, COUGHING UP WHITE COLORED SPUTUM. TELE SHOWS AFIB W/ RATE OF 104 ON MONITOR. MEDICATED FOR 8 OUT OF 10 BACK PAIN PER EMAR. IV ABX INFUSING PER EMAR. BED IN LOWEST POSTION, CALL LIGHT IN REACH WILL CONTINUE WITH PLAN OF CARE. YAYO PT WAS UPDATED OVER THE PHONE ON PT CURRENT STATUS.
[2024-09-17] VITALS (7 sets, daily range): BP systolic 120–156; BP diastolic 65–91
[2024-09-17 04:03] LABS: Hematocrit 42.1 % (37.0-53.0); Hemoglobin 14.6 g/dL (13.5-17.5); Mean Corpuscular HGB 32.1 pg (26.0-34.0); Mean Corpuscular HGB Conc 34.7 g/dL (31.5-36.5); Mean Corpuscular Volume 93 fL (80-100); Mean Platelet Volume 9.6 fL (9.1-12.4); Platelet Count 274 K/mm3 (150-400); RDW Coefficient Variation 14.4 % (11.7-14.2); RDW Standard Deviation 49.1 fL (35.1-46.3); Red Blood Cell Count 4.55 M/mm3 (4.30-5.90); White Blood Cell Count 8.18 K/mm3 (4.00-11.30)
[2024-09-17 04:24] LABS: Albumin, Blood 2.5 g/dL (3.4-5.0); Anion Gap 8 mmol/L (3-11); Blood Urea Nitrogen 27 mg/dL (8-24); Bun/Creatinine Ratio 49.4 (12.0-20.0); CO2, Blood 28 mmol/L (21-32); Calcium, Blood 8.3 mg/dL (8.5-10.1); Chloride, Blood 106 mmol/L (98-108); Creatinine, Blood 0.55 mg/dL (0.60-1.20); Glomerular Filtration Rate 113 (60-); Glucose, Blood 183 mg/dL (70-99); Phosphorus, Blood 2.9 mg/dL (2.5-4.9); Potassium, Blood 3.6 mmol/L (3.5-5.5); Sodium, Blood 138 mmol/L (136-145)
[2024-09-17 04:29] LABS: BASOPHILS PERCENT MAN 0 % (0-2); EOSINOPHILS PERCENT MAN 0 % (0-6); LYMPHOCYTES ABSOLUTE MAN 0.73 K/mm3 (0.84-5.20); LYMPHOCYTES PERCENT MAN 9 % (21-46); MONOCYTES ABSOLUTE MAN 0.49 K/mm3 (0.16-1.47); MONOCYTES PERCENT MAN 6 % (4-13); NEUTROPHILS ABSOLUTE MAN 6.95 K/mm3 (1.96-9.15); SEG NEUTROPHILS PERCENT MAN 85 % (41-73); TOTAL CELLS COUNTED 100
[2024-09-17] MEDS ORDERED: Metoprolol Succinate 25 MG TABCR PO ONE (11:10)
[2024-09-17] MEDS ORDERED: Vancomycin HCl 250 MG Cap PO SCH (12:00)
--- NOTE | 2024-09-17 17:13 | NUR ---
SHIFT SUMMARY: PT HAS BEEN A&Ox4, COOPERATIVE W/CARE, ABLE TO MAKE NEEDS KNOWN. PT ENDORSES SOB W/ACTIVITY, O2 SATS >92% ON 4 L/MIN VIA FACE MASK, DESATS WHEN MASK OFF OR WHEN SPEAKING FOR A LONG TIME, PT NOT TOLERATING BIPAP. PT DENIES CHEST PAIN/PRESSURE, AFIB/FLUTTER ON MONITOR, RATE 100-110s AT REST, UP TO 140s W/ACTIVITY BUT DOES NOT SUSTAIN. PT IS CONTINENT AT BASELINE, USING URINAL W/OUT ISSUE, SBA/INDEPENDENT TO BSC FOR BMs. 3 BM THIS SHIFT, LOOSE IN NATURE, ESTHER IBRAHIM STARTED THIS SHIFT. PT DECLINED BEDBATH TODAY. PT MEDICATED PER EMAR FOR C/O CHRONIC BACK PAIN, CURRENTLY RESTING IN BED W/CALL LIGHT IN REACH.
--- NOTE | 2024-09-17 20:22 | NUR ---
ASSUMPTION OF CARE: REPORT RECEIVED FROM DAY RN. PATIENT APPEARS COMFORTABLE. NO NEEDS AT THIS TIME. CONTINUE CARE
[2024-09-17] MEDS ORDERED: Metoprolol Succinate 50 MG TABCR PO SCH (21:00)
[2024-09-17] MEDS ORDERED: MethylPREDNISolone Sod Succ 40 MG VIAL IV SCH (21:00)
[2024-09-18 03:50] LABS: BASOPHILS ABSOLUTE AUTO 0.01 K/mm3 (0.00-0.23); BASOPHILS PERCENT AUTO 0 % (0-2); EOSINOPHILS PERCENT AUTO 0 % (0-6); Hematocrit 39.3 % (37.0-53.0); Hemoglobin 13.7 g/dL (13.5-17.5); Mean Corpuscular HGB 32.4 pg (26.0-34.0); Mean Corpuscular HGB Conc 34.9 g/dL (31.5-36.5); Mean Corpuscular Volume 93 fL (80-100); Mean Platelet Volume 9.5 fL (9.1-12.4); Platelet Count 289 K/mm3 (150-400); RDW Coefficient Variation 14.2 % (11.7-14.2); RDW Standard Deviation 48.7 fL (35.1-46.3); Red Blood Cell Count 4.23 M/mm3 (4.30-5.90); White Blood Cell Count 9.34 K/mm3 (4.00-11.30)
[2024-09-18 03:52] LABS: IMMATURE GRAN ABSOLUTE AUTO 0.08 K/mm3 (0.00-0.10); IMMATURE GRAN PERCENT AUTO 1 % (0-1); LYMPHOCYTES ABSOLUTE AUTO 0.42 K/mm3 (0.84-5.20); LYMPHOCYTES PERCENT AUTO 5 % (21-46); MONOCYTES PERCENT AUTO 5 % (4-13); NEUTROPHILS ABSOLUTE AUTO 8.33 K/mm3 (1.96-9.15); NEUTROPHILS PERCENT AUTO 89 % (41-73)
[2024-09-18 04:13] LABS: Albumin, Blood 2.4 g/dL (3.4-5.0); Albumin/Globulin Ratio 0.7 (0.8-1.8); Bilirubin, Total 0.6 mg/dL (0.1-1.0); Bun/Creatinine Ratio 44.8 (12.0-20.0); Calcium, Blood 7.9 mg/dL (8.5-10.1); Creatinine, Blood 0.54 mg/dL (0.60-1.20); Globulin, Blood 3.4 g/dL (2.2-4.0); Magnesium, Blood 2.5 mg/dL (1.6-2.4); Potassium, Blood 3.7 mmol/L (3.5-5.5); Total Protein, Blood 5.8 g/dL (6.4-8.2)
[2024-09-18 04:14] VITALS: BP 148/86
--- NOTE | 2024-09-18 05:01 | NUR ---
Patient awake most of shift. Did not sleep well. Taking PRN [place] Q4H PRN Wearing a simple mask 4 L for oxgenation needs. Saturations in the low 90's. Urine is dark in color. No stools during the night. Continue Care
[2024-09-18 08:17] VITALS: BP 122/90
[2024-09-18] MEDS ORDERED: Ciprofloxacin 400MG/D5 200ML 200 ML IV SCH (09:30)
[2024-09-18 11:25] VITALS: BP 118/83
[2024-09-18 15:11] VITALS: BP 121/89
--- NOTE | 2024-09-18 17:22 | NUR ---
SHIFT SUMMARY: PT HAS BEEN A&Ox4, COOPERATIVE W/CARE, ABLE TO MAKE NEEDS KNOWN. PT REPORTS IMPROVEMENT TO HIS SOB TODAY, O2 FLOW TITRATED DOWN TO 2L/MIN VIA FACEMASK AND WILL OCCASIONALLY REMOVE MASK, SATS >92%. PT HAS DENIED CP, AFIB/FLUTTER ON MONITOR, RATE 90s. PT INDEPENDENTLY USING BSC AND URINAL, 3 SOFT BMs THIS SHIFT THAT WERE LIGHT BROWN. IV AND PO ABX CONTINUE PER ORDERS. PT MEDICATED PER EMAR FOR C/O CHRONIC BACK PAIN. PT ADMISSION STATUS CHANGED TO MEDICAL DEPT, ROOM ASSIGNMENT RECEIVED, PT WILL BE TRANSFERED ONCE REPORT HAS BEEN GIVEN.
--- NOTE | 2024-09-18 18:10 | NUR ---
TRANSFER: REPORT GIVEN TO FEDERICO GARCIA. PT's SPOUSE, YAYO, UPDATED VIA TELEPHONE. PT TRANSFERED TO MEDICAL DEPT VIA W/C.
--- NOTE | 2024-09-18 18:15 | NUR ---
PT TO ROOM FROM U 19. REPORT RECIEVED FROM HUBER CABALLERO.
[2024-09-18 20:15] VITALS: BP 129/80
[2024-09-18] MEDS ORDERED: Apixaban 5 MG Tab PO SCH (21:00)
[2024-09-18] MEDS ORDERED: MethylPREDNISolone Sod Succ 40 MG VIAL IV SCH (21:00)
[2024-09-18 23:29] VITALS: BP 130/75
[2024-09-19] MEDS ORDERED: NS 250 ML IV PRN (00:20)
--- NOTE | 2024-09-19 03:57 | NUR ---
SHIFT SUMMARY 59 YR M ADMITTED ON 09/13/24. FULL CODE. NO ACUTE CHANGES THIS SHIFT. PT C/O BACK PAIN AND MEDICATED PER EMAR. HE REQUESTS PAIN MEDS OFTEN. HE IS PLEASANT AND COOPERATIVE WITH CARE. INDEPENDANT TO BSC AND ABLE TO MAKE HIS NEEDS KNOWN. O2 SATS REMAIN WNL ON 2 L O2 VIA FACE MASK. NO ADVERSE EVENTS REPORTED FROM CHIEF COUNSEL THIS SHIFT. NO C/O CHEST PAIN OR SOB. BED IN LOW PSOITION, CALL LIGHT IN REACH.
[2024-09-19 04:20] VITALS: BP 130/83
[2024-09-19 07:51] VITALS: BP 136/87
[2024-09-19] MEDS ORDERED: Metoprolol Succinate 25 MG TABCR PO ONE (09:40)
[2024-09-19 10:05] VITALS: BP 116/80
--- NOTE | 2024-09-19 11:33 | NUR ---
1100- INFORMED MD ABOUT CHANGE IN PT STATUS. PT FEELS "FLUTTERING IN HEART". THIS RN PERFORMED EKG, INCREASED O2 TO 3L, AND INFORMED MD ABOUT RESULTS. MD TO PLACE ORDERS.
[2024-09-19] MEDS ORDERED: ALPRAZolam 0.25 MG Tab PO PRN (11:45)
--- NOTE | 2024-09-19 17:02 | NUR ---
SHIFT SUMMARY PT AOX4, COOPERATIVE, ABLE TO MAKE NEEDS KNOWN. PT ON OXYGEN MASK 3L CURRENTLY DUE TO "MOUTH BREATHING". DID HAVE CARDIAC EPISODE EARLY IN SHIFT, TOOK EKG AND INFORMED MD. ANTI ANXIETY MEDICATION ORDERED. PT IS SBA TO BATHROOM FOR VOIDING. PT HR DOES INCREASE DURING ACTIVITY. TOLERATING PO AND IV MEDICATION. PT DOES HAVE IRRITATION WITH SITUATION CURRENTLY AND BECOMES CONFUSED OCCASIONALLY. BED IN LOWEST POSITION, CALL LIGHT WITHIN REACH.
[2024-09-19 20:29] VITALS: BP 135/90
[2024-09-19] MEDS ORDERED: Metoprolol Succinate 50 MG TABCR PO SCH (21:00)
[2024-09-19 23:40] VITALS: BP 141/95
[2024-09-20] MEDS ORDERED: Metoprolol Tartrate 1 MG/ML 5 ML VIAL IV ONE (02:00)
--- NOTE | 2024-09-20 02:51 | NUR ---
PER AUTOMOTIVE DIAGNOSTIC TECHNICIAN, PT HAD A 6 BEAT RUN OF VTAC @ 2308, AND ANOTHER 6 BEAT RUN OF VTAC @ 0140. HR FROM BEGINNING OF SHIFT HAS BEEN SUSTAINING IN THE 100'S -1 TEENS AND GETTING UP TO 130-140. HOSPITALIST WAS NOTIFIED @ 0200 AND A ONE-TIME ORDER OF METOPROLOL WAS ORDERED AND ADMINISTERED @ 0210. PT HAS BEEN ASYMPTOMATIC AND HAS HAD NO C/O CHEST PAIN, PRESSURE, OR DISCOMFORT.
--- NOTE | 2024-09-20 04:13 | NUR ---
Telemetery contact @0401 pt continues to have small runs of V Tach 5 to 8 beats provider is aware will continue to monitor
[2024-09-20 04:30] VITALS: BP 113/63
[2024-09-20 04:57] LABS: BASOPHILS ABSOLUTE AUTO 0.02 K/mm3 (0.00-0.23); BASOPHILS PERCENT AUTO 0 % (0-2); EOSINOPHILS PERCENT AUTO 0 % (0-6); Hematocrit 43.8 % (37.0-53.0); Hemoglobin 14.8 g/dL (13.5-17.5); IMMATURE GRAN ABSOLUTE AUTO 0.15 K/mm3 (0.00-0.10); IMMATURE GRAN PERCENT AUTO 1 % (0-1); LYMPHOCYTES ABSOLUTE AUTO 0.38 K/mm3 (0.84-5.20); LYMPHOCYTES PERCENT AUTO 4 % (21-46); MONOCYTES ABSOLUTE AUTO 0.48 K/mm3 (0.16-1.47); MONOCYTES PERCENT AUTO 5 % (4-13); Mean Corpuscular HGB 31.4 pg (26.0-34.0); Mean Corpuscular HGB Conc 33.8 g/dL (31.5-36.5); Mean Corpuscular Volume 93 fL (80-100); Mean Platelet Volume 8.9 fL (9.1-12.4); NEUTROPHILS ABSOLUTE AUTO 9.57 K/mm3 (1.96-9.15); NEUTROPHILS PERCENT AUTO 90 % (41-73); Platelet Count 371 K/mm3 (150-400); RDW Coefficient Variation 13.6 % (11.7-14.2); RDW Standard Deviation 46.9 fL (35.1-46.3); Red Blood Cell Count 4.72 M/mm3 (4.30-5.90)
--- NOTE | 2024-09-20 05:01 | NUR ---
SHIFT SUMMARY 59 YR M ADMITTED ON 09/13/24. FULL CODE. PER METAL FABRICATOR, PT HAS HAD SHORT RUNS OF VTAC THROUGHOUT THE NIGHT. 6 BEATS VTAC @ 2308 6 BEATS VTAC @ 0140 8 BEATS VTAC @ 0320 5 BEATS VTAC @ 0405 5 BEATS VTAC @ 0500 PLEASE SEE PRIOR NOTE. MAG AND PHOS ADDED TO MORNING LABS, PER HOSPITALIST. PT IS ASYMPTOMATIC. PT HAS BEEN NON COMPLIANT WITH OXYGEN. HE IS ON 3 L O2 BY FACE MASK BUT CONTINUOUSLY TAKING IT OFF. HE INSISTED ON NOT HAVING THE CONTINUOUS BIOX AND WAS EDUCATED ON THE IMPORTANCE OF CONTINOUS MONITORING. RT SPOKE W/ PT AND PT SIGNED A REFUSAL FORM.
[2024-09-20 05:22] LABS: Bun/Creatinine Ratio 31.7 (12.0-20.0); Calcium, Blood 8.3 mg/dL (8.5-10.1); Creatinine, Blood 0.66 mg/dL (0.60-1.20); Magnesium, Blood 2.4 mg/dL (1.6-2.4); Phosphorus, Blood 3.7 mg/dL (2.5-4.9); Potassium, Blood 4.3 mmol/L (3.5-5.5)
[2024-09-20 07:26] VITALS: BP 115/80
[2024-09-20] MEDS ORDERED: Metoprolol Succinate 50 MG TABCR PO SCH (09:00)
[2024-09-20 12:03] VITALS: BP 122/67
[2024-09-20] MEDS ORDERED: CIPR500 PO (13:29)
[2024-09-20] MEDS ORDERED: ELIQUIS5 M2 PO (13:29)
[2024-09-20] MEDS ORDERED: FURO80 PO (13:30)
[2024-09-20] MEDS ORDERED: METO50ER PO (13:32)
[2024-09-20] MEDS ORDERED: VANCOCIN HCL250 MG PO (13:37)
[2024-09-20] MEDS ORDERED: VISBIOME 112.51 EACH PO (13:38)
[2024-09-20] MEDS ORDERED: Prednisone10 MG PO (13:38)
--- NOTE | 2024-09-20 14:40 | NUR ---
PT DISCHARGED PER MD. DISCHARGE PAPER WORK GIVEN AND ALL PIVS REMOVED. PT HAS NO QUESTIONS OR CONCERNS.
== END 2024-09-20 13:58 | disposition home health service (06) | DRG 177 ==
LOC: ER 15:00 → PCU 15:01 → MEDS 09-13 15:22 → PCU 09-13 15:23 → MEDS 09-18 18:10
PROVIDERS: Emergency Medicine; Family Medicine; Hospitalist; Nurse Practitioner Acute Care; Student in an Organized Health Care Education/Training Program; ADMIT Student in an Organized Health Care Education/Training Program
PROC: 5A09357 Assistance with Respiratory Ventilation, Less than 24 Consecutive Hours, Continuous Positive Airway Pressure (ICD-10-PCS; principal; 2024-09-12)
DX: J15.8 Pneumonia due to other specified bacteria (principal); J96.01 Acute respiratory failure with hypoxia; F11.20 Opioid dependence, uncomplicated; A04.72 Enterocolitis due to Clostridium difficile, not specified as recurrent; K92.1 Melena; J44.1 Chronic obstructive pulmonary disease with (acute) exacerbation; J10.00 Influenza due to other identified influenza virus with unspecified type of pneumonia; G89.29 Other chronic pain; M50.30 Other cervical disc degeneration, unspecified cervical region; E66.01 Morbid (severe) obesity due to excess calories; E78.5 Hyperlipidemia, unspecified; F17.290 Nicotine dependence, other tobacco product, uncomplicated; I48.91 Unspecified atrial fibrillation; B95.2 Enterococcus as the cause of diseases classified elsewhere; Z79.899 Other long term (current) drug therapy; Z68.31 Body mass index [BMI] 31.0-31.9, adult; Z98.890 Other specified postprocedural states; Z91.013 Allergy to seafood
CPT/HCPCS: 36415; 71045; 71260; 80048; 80053; 80069; 82272; 82803; 83605; 83735; 83880; 84100; 84145; 84443; 84484; 85014; 85018; 85025; 85379; 85610; 87040; 87070; 87077; 87186; 87205; 87324; 87493; 93005; 93010; 94640; 94660; 94664; 94761; 94762; 96361; 96365; 96366; 96367; 96368; 96372; 96375; 96376; 97116; 97161; 97530; 99285-25; A9270; C8929; G0378; J0456; J0696; J0744; J1171; J1200; J1650; J1940; J2270; J2405; J2470; J2765; J2919; J3010; J7030; J7050; J7060; J7120; Q9957; Q9967

== ENCOUNTER 2024-10-06 09:33 | Emergency (ER) | payer OTHER ==
[~2024-10-06] VITALS: Ht 172.7 cm; Wt 88.5 kg
[~2024-10-06 09:33] MED LIST changes: +ADDERALL 10 MG10 MG PO; +CIPR500 PO; +ELIQUIS5 M2 PO; +FURO80 PO; +METO50ER PO; +Prednisone10 MG PO; +VANCOCIN HCL250 MG PO; +VISBIOME 112.51 EACH PO
[2024-10-06] MEDS ORDERED: OxyCODONE 10/Acetamin 325 TABLET PO ONE (10:05)
[2024-10-06 10:20] LABS: BASOPHILS ABSOLUTE AUTO 0.04 K/mm3 (0.00-0.23); BASOPHILS PERCENT AUTO 1 % (0-2); EOSINOPHILS ABSOLUTE AUTO 0.19 K/mm3 (0.00-0.68); EOSINOPHILS PERCENT AUTO 2 % (0-6); Hematocrit 33.9 % (37.0-53.0); Hemoglobin 11.5 g/dL (13.5-17.5); IMMATURE GRAN ABSOLUTE AUTO 0.31 K/mm3 (0.00-0.10); IMMATURE GRAN PERCENT AUTO 4 % (0-1); LYMPHOCYTES ABSOLUTE AUTO 0.95 K/mm3 (0.84-5.20); LYMPHOCYTES PERCENT AUTO 12 % (21-46); MONOCYTES PERCENT AUTO 9 % (4-13); Mean Corpuscular HGB 31.8 pg (26.0-34.0); Mean Corpuscular HGB Conc 33.9 g/dL (31.5-36.5); Mean Corpuscular Volume 94 fL (80-100); Mean Platelet Volume 8.7 fL (9.1-12.4); NEUTROPHILS ABSOLUTE AUTO 6.07 K/mm3 (1.96-9.15); NEUTROPHILS PERCENT AUTO 73 % (41-73); Platelet Count 357 K/mm3 (150-400); RDW Coefficient Variation 14.4 % (11.7-14.2); RDW Standard Deviation 49.5 fL (35.1-46.3); Red Blood Cell Count 3.62 M/mm3 (4.30-5.90); White Blood Cell Count 8.26 K/mm3 (4.00-11.30)
[2024-10-06 10:39] LABS: Albumin, Blood 2.1 g/dL (3.4-5.0); Albumin/Globulin Ratio 0.4 (0.8-1.8); Bilirubin, Total 0.5 mg/dL (0.1-1.0); Bun/Creatinine Ratio 25.8 (12.0-20.0); Calcium, Blood 9.1 mg/dL (8.5-10.1); Creatinine, Blood 0.62 mg/dL (0.60-1.20); Globulin, Blood 4.9 g/dL (2.2-4.0); Potassium, Blood 3.8 mmol/L (3.5-5.5)
[2024-10-06 10:53] LABS: Source, Urine Clean Catch
[2024-10-06] MEDS ORDERED: Azithromycin 500 MG in NS 250 ML IV ONE (10:55)
[2024-10-06] MEDS ORDERED: CefTRIAXone Sodium 1,000 MG in NS 100 ML IV ONE (10:55)
[2024-10-06 10:58] LABS: Appearance, Urine Clear (Clear); Bilirubin, Urine Neg (Neg); Blood, Urine Neg (Neg); Color, Urine Yellow (P-Yellow); Glucose Qualitative, Urine Neg (Neg); Ketones, Urine Neg (Neg); Leukocyte Esterase, Urine Neg (Neg); Nitrite, Urine Neg (Neg); Protein, Urine Neg (Neg); Urobilinogen, Urine NORM (Normal); pH, Urine 6.5 (5.0-8.0)
[2024-10-06 13:53] VITALS: BP 112/72
[2024-10-06] MEDS ORDERED: NS 1,000 ML IV SCH (14:00)
[2024-10-06] MEDS ORDERED: AZIT250 PO (15:27)
[2024-10-06] MEDS ORDERED: AMOCLA875 PO (15:27)
== END 2024-10-06 15:22 | disposition home or self-care (01) ==
LOC: ER 09:33
PROVIDERS: Student in an Organized Health Care Education/Training Program
DX: J18.9 Pneumonia, unspecified organism (principal); Z91.013 Allergy to seafood; Z79.899 Other long term (current) drug therapy; Z79.01 Long term (current) use of anticoagulants
CPT/HCPCS: 36415; 71046; 80053; 81003; 83605; 83690; 83880; 84484; 85025; 87040; 93005; 93010; 96361; 96365; 96367; 99285-25; A9270; J0456; J0696; J7030; J7050

== ENCOUNTER → 2025-04-18 | Outpatient (CLI) | payer OTHER ==
[~2025-04-18] MED LIST changes: +AZIT250 PO
[2025-04-18 19:16] LABS: BASOPHILS ABSOLUTE AUTO 0.05 K/mm3 (0.00-0.23); BASOPHILS PERCENT AUTO 1 % (0-2); EOSINOPHILS ABSOLUTE AUTO 0.21 K/mm3 (0.00-0.68); EOSINOPHILS PERCENT AUTO 2 % (0-6); Hematocrit 51.0 % (37.0-53.0); Hemoglobin 17.1 g/dL (13.5-17.5); IMMATURE GRAN ABSOLUTE AUTO 0.08 K/mm3 (0.00-0.10); IMMATURE GRAN PERCENT AUTO 1 % (0-1); LYMPHOCYTES ABSOLUTE AUTO 2.07 K/mm3 (0.84-5.20); LYMPHOCYTES PERCENT AUTO 24 % (21-46); MONOCYTES ABSOLUTE AUTO 0.67 K/mm3 (0.16-1.47); MONOCYTES PERCENT AUTO 8 % (4-13); Mean Corpuscular HGB Conc 33.5 g/dL (31.5-36.5); Mean Corpuscular Volume 96 fL (80-100); NEUTROPHILS ABSOLUTE AUTO 5.51 K/mm3 (1.96-9.15); NEUTROPHILS PERCENT AUTO 64 % (41-73); NRBC ABSOLUTE 0.00 K/mm3 (0.00-0.02); NRBC Auto 0.0 /100 WBC (0.0-0.2); Platelet Count 357 K/mm3 (150-400); RDW Coefficient Variation 14.4 % (11.7-14.2); RDW Standard Deviation 50.1 fL (35.1-46.3)
[2025-04-18 20:05] LABS: Alanine Aminotransfer (ALT/SGP 30 U/L (12-78); Albumin, Blood 3.9 g/dL (3.4-5.0); Albumin/Globulin Ratio 1.1 (0.8-1.8); Anion Gap 8 mmol/L (3-11); Aspartate Aminotrans (AST/SGOT 20 U/L (12-37); Bilirubin, Total 0.3 mg/dL (0.1-1.0); Blood Urea Nitrogen 11 mg/dL (8-24); CHOL/HDL RATIO 4.8; CO2, Blood 24 mmol/L (21-32); Calcium, Blood 9.2 mg/dL (8.5-10.1); Chloride, Blood 107 mmol/L (98-108); Cholesterol 179 mg/dL (50-200); Creatinine, Blood 0.74 mg/dL (0.60-1.20); Globulin, Blood 3.5 g/dL (2.2-4.0); Glucose, Blood 96 mg/dL (70-99); HDL Cholesterol 37 mg/dL (>39); LDL/HDL RATIO 2.7; Low Density Lipoprotein Chol 99 mg/dL (0-110); Potassium, Blood 3.7 mmol/L (3.5-5.5); Prostate Specific Antigen 0.341 ng/mL (0.000-4.000); Sodium, Blood 135 mmol/L (136-145); Total Protein, Blood 7.4 g/dL (6.4-8.2); Triglycerides 214 mg/dL (30-160); Very Low Density Lipoprot Chol 42 mg/dL (6-32)
== END ==
LOC: LAB SHORT 17:14 → LAB 17:14
PROVIDERS: Student in an Organized Health Care Education/Training Program
DX: E55.9 Vitamin D deficiency, unspecified (principal); Z12.5 Encounter for screening for malignant neoplasm of prostate; Z79.899 Other long term (current) drug therapy
CPT/HCPCS: 80053; 80061; 82306; 85025; G0103